=== PATIENT | male | born 1930 | race Caucasian/White ===

== ENCOUNTER → 2017-09-08 08:55 | Outpatient (CLI) | payer MEDICARE, OTHER ==
[2014-08-22 10:45] VITALS: BMI 29.8
[~2017-09-08 08:55] MED LIST: BAYER CHEWABLE81 MG PO; HYDROCODONE-APA1 TAB PO; LISINOPRIL10 MG PO; MOBIC7.5 MG PO; PLAVIX75 MG PO; PRAVACHOL20 MG PO; VOLTAREN100 GM TOPICAL
== END | disposition home or self-care (01) ==
LOC: D.MRI 08:55
DX: M25.511 Pain in right shoulder (principal)

== ENCOUNTER 2017-10-04 09:50 | Day surgery (SDC) | payer MEDICARE, OTHER ==
[2017-10-01 10:17] LABS: BASOPHILS 0.2 % (0-2); EOSINOPHILS 2.6 % (0-7); HEMATOCRIT 44.2 % (42.0-54.0); HEMOGLOBIN 15.2 g/dL (13.5-17.5); LYMPHOCYTES 19.5 % (15-50); MCH 31.3 pg (26.0-34.0); MCHC 34.4 g/dL (31.0-37.0); MCV 90.9 fL (80.0-100.0); MEAN PLATELET VOLUME 9.8 fL (7.4-10.4); MONOCYTES 8.6 % (2-11); NEUTROPHILS 69.1 % (40-80); PLATELET COUNT 138 10x3/uL (130-400); RBC 4.86 10x6/uL (4.20-6.10); RDW 12.2 % (11.5-14.5); WBC 6.3 10x3/uL (4.8-10.8)
[2017-10-01 10:38] LABS: CALCIUM 8.4 mg/dL (8.5-10.1); CARBON DIOXIDE 27.4 mmol/L (21.0-32.0); CREATININE - SERUM 1.2 mg/dL (0.6-1.3); POTASSIUM - SERUM 4.4 mmol/L (3.5-5.1)
[~2017-10-04] VITALS: Ht 167.6 cm; Wt 86.2 kg
--- NOTE | ~2017-10-04 | OP ---
PATIENT NAME: MAZIN FAUSTIN MEDICAL RECORD: [id number] [facility]: SURGEON: JANES SIMMS MD DATE OF OPERATION: 10/04/2017 PREOPERATIVE DIAGNOSIS: Rotator cuff tear of the right shoulder. POSTOPERATIVE DIAGNOSIS: Rotator cuff tear of the right shoulder. PROCEDURES: 1. Right shoulder arthroscopy with arthroscopic rotator cuff repair. 2. Arthroscopic subacromial decompression. 3. Arthroscopic distal clavicle excision done through a separate incision. SURGEON: Janes Simms MD ANESTHESIA: General. INTRAOPERATIVE COMPLICATIONS: None. SUMMARY OF PATHOLOGIC FINDINGS: The patient had very large rotator cuff tear that required SpeedBridge double row fixation as well as augmentation anteriorly and posteriorly. OPERATIVE SUMMARY IN DETAIL: After obtaining the appropriate preoperative orthopedic surgery consent as well as anesthetic consultation, evaluation and clearance, the patient was brought to the operating room and placed on the operating table in supine position. After adequate general laryngeal mask airway was administered, the patient was placed in a left lateral decubitus position. All pressure points were well padded to include down leg peroneal pad as well as axillary roll. He was held firmly to the operating table using the vacuum pack suction system. Right upper extremity and shoulder were then prepped and draped in a routine sterile fashion. Arm was held in the Arthrex traction boom at 30 degrees of forward flexion with abduction, 10 pounds of traction laterally. Arthroscopy was established in the glenohumeral joint for posterior portal. Anterior portal was established in the anterior safe interval. Diagnostic arthroscopy did show the patient had a very large rotator cuff tear as mentioned above. Attention was then turned to the subacromial space. While in subacromial space, [place] tissue ablation system was utilized to denude the undersurface of the acromion of all soft tissue elements and release the coracoacromial ligament as well as denude the undersurface of the AC joint where the patient had large inferior osteophytes. Having completed this, a 5-0 barrel bur was used to perform acromioplasty at the level of acromioclavicular joint and then through separate anterior portal under arthroscopic visualization, the distal clavicle was excised for 1 cm. Having completed this, attention turned to the rotator cuff tear. Serial and sequential tag sutures were placed using the Scorpion to mobilize the rotator cuff. Having mobilized the rotator cuff, the Arthrex SpeedBridge system was utilized for double footprint suture. This, however, also required a 4.75 augment anteriorly as well as a 4.75 for dog ears posteriorly . Having completed this, arthroscopy portals were closed in routine interrupted fashion using 4-0 Prolene. Sterile dressings were applied. The patient was awakened and taken to recovery room in stable condition. All final needle and sponge counts were correct. OPERATIVE REPORT [id number] MAZIN FAUSTIN TRANSINT:[id number] Voice Confirmation ID: [id number] DOCUMENT ID: [id number] DEMI MENG, JANES CARTER at 1341 CC: [id number] DICTATION DATE: 10/11/17 230 RIB SAWYER: 10/12/17 0953 [facility] 10/04/17 [id number] [place] [address]
[~2017-10-04 09:50] MED LIST changes: -HYDROCODONE-APA1 TAB PO
[2017-10-04 10:26] VITALS: BP 157/76; Ht 167.6 cm; Wt 86.2 kg
[2017-10-04] MEDS ORDERED: HYDROCODONE-APA1 TAB PO (15:24)
== END 2017-10-04 17:15 | disposition home or self-care (01) ==
LOC: D.OPS 09:50 → D.PAN 10:45 → D.OPS 10:45
PROVIDERS: Anesthesiology
DX: M75.121 Complete rotator cuff tear or rupture of right shoulder, not specified as traumatic (principal); I25.10 Atherosclerotic heart disease of native coronary artery without angina pectoris; I10 Essential (primary) hypertension; K21.9 Gastro-esophageal reflux disease without esophagitis; Z95.5 Presence of coronary angioplasty implant and graft; Z01.812 Encounter for preprocedural laboratory examination

== ENCOUNTER 2018-12-01 10:46 | Emergency (ER) | payer MEDICARE, OTHER ==
[~2018-12-01 10:46] MED LIST changes: +HYDROCODONE-APA1 TAB PO
[2018-12-01 10:48] VITALS: BMI 31.5
[2018-12-01 11:36] LABS: BASOPHILS 0.1 % (0-2); EOSINOPHILS 1.1 % (0-7); HEMATOCRIT 44.4 % (42.0-54.0); HEMOGLOBIN 15.7 g/dL (13.5-17.5); IMMATURE GRANULOCYTES 0.2 % (0-5); LYMPHOCYTES 12.8 % (15-50); MCH 30.8 pg (26.0-34.0); MCHC 35.4 g/dL (31.0-37.0); MCV 87.1 fL (80.0-100.0); MEAN PLATELET VOLUME 9.3 fL (7.4-10.4); MONOCYTES 7.8 % (2-11); PLATELET COUNT 147 10x3/uL (130-400); RDW 12.4 % (11.5-14.5); WBC 8.2 10x3/uL (4.8-10.8)
[2018-12-01 11:44] LABS: APTT 30.8 SECONDS (22.8-39.4); INR 1.09 (0.85-1.17); PROTIME 13.6 SECONDS (11.6-15.0)
[2018-12-01 11:52] LABS: ALBUMIN 3.5 g/dL (3.4-5.0); ALKALINE PHOSPHATASE 68 U/L (46-116); ALT (SGPT) 22 U/L (10-68); BILIRUBIN - TOTAL 0.48 mg/dL (0.2-1.3); CALC OSMOLALITY 284 mosm/kg (275-300); CALCIUM 8.5 mg/dL (8.5-10.1); CARBON DIOXIDE 31.2 mmol/L (21.0-32.0); CHLORIDE - SERUM 108 mmol/L (98-107); CREATININE - SERUM 1.2 mg/dL (0.6-1.3); GLUCOSE 124 mg/dL (74-106); POTASSIUM - SERUM 5.1 mmol/L (3.5-5.1); PROTEIN - SERUM 6.6 g/dL (6.4-8.2); SODIUM 143 mmol/L (136-145); UREA NITROGEN 11 mg/dL (7-18); eGFR NON AFRICAN AMERICAN 61 mL/min (90-120)
[2018-12-01 12:08] LABS: CREATINE KINASE 152 UL (21-232); MAGNESIUM - SERUM 2.2 mg/dL (1.8-2.4); TROPONIN-I < 0.017 ng/mL (0.000-0.060)
[2018-12-01 12:34] LABS: CKMB 4.3 U/L (0.0-3.6)
[2018-12-01] MEDS ORDERED: OMEPRAZOLE40 MG PO (13:40)
[2018-12-01 14:30] VITALS: BP 148/69
== END 2018-12-01 14:06 | disposition home or self-care (01) ==
LOC: D.ER 10:46
PROVIDERS: Emergency Medicine
DX: R20.8 Other disturbances of skin sensation (principal); I25.10 Atherosclerotic heart disease of native coronary artery without angina pectoris; I10 Essential (primary) hypertension